=== PATIENT | male | born 1965 | race Caucasian/White ===

== ENCOUNTER 2017-02-27 21:57 | Emergency (ER) | payer OTHER ==
[~2017-02-27] VITALS: Ht 182.9 cm; Wt 95.2 kg
[2017-02-27] MEDS ORDERED: NORCO 5-325 TA1 EACH PO (22:25)
[2017-02-27] MEDS ORDERED: LOVASTATIN40 MG PO (22:25)
--- NOTE | 2017-02-28 16:35 | EKG ---
[facility] [address] [facility] [place] [address] Signed Normal sinus rhythm Nonspecific T wave abnormality Abnormal ECG No previous ECGs available Confirmed by RICHELLE ALANIS MD ([id number]) on 02/28/2017 4:35:08 PM Electronically Signed By: RICHELLE ALANIS MD 02/28/17 1635 PATIENT NAME: GIANA GIL Electrocardiogram DATE OF : 67 PHYSICIAN: RICHELLE ALANIS MD REPORT #: [id number] REPORT IS CONFIDENTIAL AND NOT TO BE RELEASED WITHOUT AUTHORIZATION
[2017-03-01] MEDS ORDERED: ZOLOFT25 MG PO (18:41)
== END 2017-02-28 03:00 | disposition home or self-care (01) ==
LOC: ED 21:57
DX: T40.2X2A Poisoning by other opioids, intentional self-harm, initial encounter (principal); T46.6X2A Poisoning by antihyperlipidemic and antiarteriosclerotic drugs, intentional self-harm, initial encounter; T39.392A Poisoning by other nonsteroidal anti-inflammatory drugs [NSAID], intentional self-harm, initial encounter
CPT/HCPCS: 36415; 80053; 80176; 81001; 84443; 85025; 93005; 93010; 96360; 96361; 99283; G0480; J7030

== ENCOUNTER 2017-03-01 18:13 | Emergency (ER) | payer OTHER ==
[~2017-03-01] VITALS: Ht 182.9 cm; Wt 97.5 kg
[~2017-03-01 18:13] MED LIST: LOVASTATIN40 MG PO; NORCO 5-325 TA1 EACH PO
[2017-03-01] MEDS ORDERED: ZOLOFT25 MG PO (18:41)
== END 2017-03-01 22:48 | disposition home or self-care (01) ==
LOC: ED 18:13
DX: R10.10 Upper abdominal pain, unspecified (principal); R10.816 Epigastric abdominal tenderness; F41.9 Anxiety disorder, unspecified; Z79.899 Other long term (current) drug therapy
CPT/HCPCS: 74177; 80053; 81001; 83690; 85025; 96374; 96375; 99284; J1885; J2405; Q9967

== ENCOUNTER 2017-03-10 14:03 | Emergency (ER) | payer OTHER ==
[~2017-03-10] VITALS: Ht 182.9 cm; Wt 97.5 kg
[~2017-03-10 14:03] MED LIST changes: +ZOLOFT25 MG PO
[2017-03-10] MEDS ORDERED: FLUOXETINE HCL20 MG PO (14:24)
== END 2017-03-10 18:45 | disposition short-term general hospital (02) ==
LOC: ED 14:03
DX: Z00.8 Encounter for other general examination (principal); F41.9 Anxiety disorder, unspecified; Z79.899 Other long term (current) drug therapy
CPT/HCPCS: 80053; 80176; 81001; 84443; 85025; 99285; G0480

== ENCOUNTER 2019-03-24 07:12 | Day surgery (SDC) | payer BC ==
[~2019-03-24] VITALS: Ht 182.9 cm; Wt 117.9 kg
[~2019-03-24 07:12] MED LIST changes: +FLUOXETINE HCL20 MG PO
--- NOTE | 2019-03-24 08:51 | NUR ---
PT ALERT, ORIENTED AND HAS A FRIEND COMING TO TAKE HIM HOME FOLLOWING DC. PT MENTIONED THAT HE HAS HAD PREVIOUS SCOPE-THIS IS JUST ROUTINE. EXTENDED A BLESSING, OR STAFF IN TO TAKE PT. WILL FOLLOW NEEDED
--- NOTE | 2019-03-24 08:58 | NUR ---
03/24/19 0858 Sarita Cerda 0852 PATIENT ARRIVES TO PACU AWAKE BUT DROWSY. DENIES PAIN OR NAUSEA. RESP EVEN AND UNLABORED. NEEDS REMINDERS TO TAKE DEEP BREATHS. DESATS TO 85% ON ROOM AIR WHEN SLEEPING.
--- NOTE | 2019-03-25 21:39 | OR ---
[facility] [address], [place] [address] Signed DATE OF OPERATION: 03/24/2019 SURGEON: Venessa Cam MD PREOPERATIVE DIAGNOSIS: Colon screening. POSTOPERATIVE DIAGNOSIS: Normal colon to cecum. PROCEDURE: Total colonoscopy to cecum. ANESTHESIA: Intravenous sedation, fentanyl 100 mcg, Versed 7 mg. INDICATION: This 53-year-old white man is a patient of Carito Avilez and is here for colon screening. He underwent colonoscopy many years ago for rectal bleeding. He has no symptoms now, specifically no bleeding, diarrhea, or constipation. He has no family history of colon cancer. He is admitted to undergo screening colonoscopy, understands the risks of bleeding, infection, and perforation. FINDINGS: The prep was excellent. Complete colonoscopy was undertaken to the cecum without question. There was no sign of polyps, diverticular formation, colitis, or cancer. DESCRIPTION OF PROCEDURE: The patient was brought to the endoscopy suite and placed in lateral decubitus position, given intravenous sedation to the point of slurred speech and nystagmus. Digital rectal examination was normal. An Olympus video colonoscope was passed in the rectum and manipulated throughout the colon ultimately intubating the cecum itself. The ileocecal valve and appendiceal orifice were normal. The scope was withdrawn from that point and examination throughout showed no sign of abnormality, specifically no polyps, diverticular formation, colitis, or cancer. Retroflex view of the rectum was normal. The scope was straightened, withdrawn, removed, and the patient taken to recovery room in good condition. CONCLUDING DIAGNOSIS: Electronically Signed By: VENESSA CAM MD 03/25/19 2139 PATIENT NAME: GIANA GIL OPERATIVE REPORT DATE OF : 67 REPORT #: [id number] PHYSICIAN: VENESSA CAM MD PCP: CARITO AVILEZ PA-C REPORT IS CONFIDENTIAL AND NOT TO BE RELEASED WITHOUT AUTHORIZATION [facility] [address] [place] [address] [place], [place] [address] Signed Normal colon. PLAN: Recommend repeat colonoscopy in 10 years per current clinical guidelines. Sooner to repeat if symptoms. He will return to the ongoing care of ROGER Juarez. MD LAINA Baldwin/FIFI /[id number] cc: ROGER Juarez Copies: ~ Electronically Signed By: VENESSA CAM MD 03/25/19 2139 PATIENT NAME: GIANA GIL OPERATIVE REPORT DATE OF : 67 REPORT #: [id number] PHYSICIAN: VENESSA CAM MD PCP: CARITO AVILEZ PA-C REPORT IS CONFIDENTIAL AND NOT TO BE RELEASED WITHOUT AUTHORIZATION
== END 2019-03-24 09:35 | disposition home or self-care (01) ==
LOC: DS 07:12 → OPS 07:12 → DS 07:45 → OPS 07:45
PROVIDERS: Surgery
PROC: 0DJD8ZZ Inspection of Lower Intestinal Tract, Via Natural or Artificial Opening Endoscopic (ICD-10-PCS; principal; 2019-03-24 07:45)
DX: Z12.11 Encounter for screening for malignant neoplasm of colon (principal); F32.9 Major depressive disorder, single episode, unspecified; I10 Essential (primary) hypertension; G47.30 Sleep apnea, unspecified; E78.5 Hyperlipidemia, unspecified; Z85.828 Personal history of other malignant neoplasm of skin; Z85.820 Personal history of malignant melanoma of skin; Z98.890 Other specified postprocedural states
CPT/HCPCS: 99153; G0500; J2250; J3010; J7121

== ENCOUNTER 2023-04-07 17:15 | Emergency (ER) | payer BC ==
[~2023-04-07] VITALS: Ht 182.9 cm; Wt 115.2 kg
[2023-04-07] MEDS ORDERED: HYDROCODON-ACE1 EA10 PO (18:43)
[2023-04-07] MEDS ORDERED: CEPHALEXIN500 M1 PO (18:43)
[2023-04-07 19:14] VITALS: BP 182/103
== END 2023-04-07 19:10 | disposition home or self-care (01) ==
LOC: ED 17:15
DX: S97.111A Crushing injury of right great toe, initial encounter (principal); S92.421B Displaced fracture of distal phalanx of right great toe, initial encounter for open fracture; W22.8XXA Striking against or struck by other objects, initial encounter
CPT/HCPCS: 12002; 73660; 90471; 90715; 99283-25; A9270